=== PATIENT | male | born 1950 | race Caucasian/White ===

== ENCOUNTER 2022-09-06 10:50 | Emergency (ER) | payer OTHER ==
[~2022-09-06] VITALS: Ht 167.6 cm; Wt 115.7 kg
[2022-09-06] MEDS ORDERED: Acetaminophen325 M1 PO (11:16)
[2022-09-06] MEDS ORDERED: ASPI81CH PO (11:17)
[2022-09-06] MEDS ORDERED: DIVA500EC PO (11:17)
[2022-09-06] MEDS ORDERED: FLUTICASONE-SA1 EAC1 INH (11:36)
[2022-09-06] MEDS ORDERED: GABA300 PO (13:03)
[2022-09-06] MEDS ORDERED: HALO2 PO (13:04)
[2022-09-06] MEDS ORDERED: EUTHYROX125 MCG PO (13:04)
[2022-09-06] MEDS ORDERED: MELO7.5 PO (13:04)
[2022-09-06] MEDS ORDERED: OXYB5 PO (13:05)
[2022-09-06] MEDS ORDERED: Norco 5-325 Ta1 EACH PO (17:21)
== END 2022-09-06 17:39 | disposition home or self-care (01) ==
LOC: ER 10:50
DX: T84.028A Dislocation of other internal joint prosthesis, initial encounter (principal); X58.XXXA Exposure to other specified factors, initial encounter; Z88.8 Allergy status to other drugs, medicaments and biological substances; Z79.82 Long term (current) use of aspirin; Z79.890 Hormone replacement therapy; Z79.899 Other long term (current) drug therapy; Z96.611 Presence of right artificial shoulder joint
CPT/HCPCS: 73030; A9270; J2704; J7030

== ENCOUNTER 2023-08-30 20:01 | Inpatient (IN) | payer OTHER ==
[~2023-08-30] VITALS: Ht 177.8 cm; Wt 108.9 kg
[~2023-08-30 20:01] MED LIST: ACET500 PO; ASPI81CH PO; DIVA500ER PO; FLUTICASONE-SA1 EAC1 INH; GABA300 PO; HALOPERIDOL2 MG/1 ML PO; LEVSOD25 PO; MOBIC15 MG PO; Norco 5-325 Ta1 EACH PO; OXYB5 PO
[2023-08-30] MEDS ORDERED: CALCIUM CARBON650 MG PO (20:16)
[2023-08-30 20:28] LABS: Base Excess Venous 2.7 mmol/L; Bicarbonate Venous 26.8 mmol/L (24.0-30.0); PCO2 Venous 37.1 mmHg (38-42); pH Blood Venous 7.46 (7.34-7.37)
[2023-08-30 20:36] LABS: BASOPHILS PERCENT AUTO 1 % (0-2); EOSINOPHILS ABSOLUTE AUTO 0.06 K/mm3 (0.00-0.68); EOSINOPHILS PERCENT AUTO 0 % (0-6); Hematocrit 39.8 % (37.0-53.0); Hemoglobin 13.1 g/dL (13.5-17.5); IMMATURE GRAN ABSOLUTE AUTO 0.08 K/mm3 (0.00-0.10); IMMATURE GRAN PERCENT AUTO 1 % (0-1); LYMPHOCYTES ABSOLUTE AUTO 1.99 K/mm3 (0.84-5.20); LYMPHOCYTES PERCENT AUTO 13 % (21-46); MONOCYTES PERCENT AUTO 14 % (4-13); Mean Corpuscular HGB Conc 32.9 g/dL (31.5-36.5); Mean Corpuscular Volume 88 fL (80-100); NEUTROPHILS ABSOLUTE AUTO 11.08 K/mm3 (1.96-9.15); NEUTROPHILS PERCENT AUTO 72 % (41-73); RDW Coefficient Variation 15.6 % (11.7-14.2); Red Blood Cell Count 4.52 M/mm3 (4.30-5.90); White Blood Cell Count 15.51 K/mm3 (4.00-11.30)
[2023-08-30 20:38] LABS: Mean Platelet Volume 10.3 fL (9.1-12.4); Platelet Count 139 K/mm3 (150-400)
[2023-08-30 20:48] LABS: Albumin, Blood 3.1 g/dL (3.4-5.0); Albumin/Globulin Ratio 0.8 (0.8-1.8); Bilirubin, Total 0.6 mg/dL (0.1-1.0); Bun/Creatinine Ratio 20.6 (12.0-20.0); Calcium, Blood 8.8 mg/dL (8.5-10.1); Creatinine, Blood 1.02 mg/dL (0.60-1.20); Potassium, Blood 3.9 mmol/L (3.5-5.5); Total Protein, Blood 7.1 g/dL (6.4-8.2)
[2023-08-31 00:36] VITALS: BP 147/84
[2023-08-31] MEDS ORDERED: ALUM-MAG HYDROX30 M1 PO (03:28)
[2023-08-31] MEDS ORDERED: GUAIFENESIN-DM 15 M2 PO (03:30)
[2023-08-31] MEDS ORDERED: DIVA500ER PO (03:31)
[2023-08-31] MEDS ORDERED: DOCU100 PO (03:32)
[2023-08-31] MEDS ORDERED: LIDO700A20 TOP (03:35)
[2023-08-31] MEDS ORDERED: LOPE2C PO (03:36)
[2023-08-31] MEDS ORDERED: NAPPHEOPSO BOTHEYES (03:37)
[2023-08-31] MEDS ORDERED: DIAPER RASH113 G1 TOP (03:40)
[2023-08-31] MEDS ORDERED: SENN187 PO (03:41)
[2023-08-31] MEDS ORDERED: Vitamin D1000 UNI1 PO (03:42)
[2023-08-31 04:34] VITALS: BP 144/97
[2023-08-31 06:08] LABS: Albumin, Blood 2.9 g/dL (3.4-5.0); Albumin/Globulin Ratio 0.7 (0.8-1.8); Bilirubin, Total 0.7 mg/dL (0.1-1.0); Bun/Creatinine Ratio 26.5 (12.0-20.0); Calcium, Blood 8.1 mg/dL (8.5-10.1); Creatinine, Blood 0.91 mg/dL (0.60-1.20); Globulin, Blood 4.1 g/dL (2.2-4.0); Magnesium, Blood 1.8 mg/dL (1.6-2.4); Potassium, Blood 4.6 mmol/L (3.5-5.5); Thyroid Stimulating Hormone 6.95 uIU/mL (0.360-4.800)
[2023-08-31 06:14] LABS: BASOPHILS ABSOLUTE AUTO 0.06 K/mm3 (0.00-0.23); BASOPHILS PERCENT AUTO 0 % (0-2); EOSINOPHILS ABSOLUTE AUTO 0.15 K/mm3 (0.00-0.68); EOSINOPHILS PERCENT AUTO 1 % (0-6); Hematocrit 37.3 % (37.0-53.0); Hemoglobin 12.3 g/dL (13.5-17.5); IMMATURE GRAN ABSOLUTE AUTO 0.05 K/mm3 (0.00-0.10); IMMATURE GRAN PERCENT AUTO 0 % (0-1); LYMPHOCYTES ABSOLUTE AUTO 2.08 K/mm3 (0.84-5.20); LYMPHOCYTES PERCENT AUTO 15 % (21-46); MONOCYTES ABSOLUTE AUTO 2.07 K/mm3 (0.16-1.47); MONOCYTES PERCENT AUTO 15 % (4-13); Mean Corpuscular HGB 28.9 pg (26.0-34.0); Mean Corpuscular Volume 88 fL (80-100); Mean Platelet Volume 10.1 fL (9.1-12.4); NEUTROPHILS ABSOLUTE AUTO 9.52 K/mm3 (1.96-9.15); NEUTROPHILS PERCENT AUTO 68 % (41-73); Platelet Count 136 K/mm3 (150-400); RDW Coefficient Variation 15.5 % (11.7-14.2); RDW Standard Deviation 49.6 fL (35.1-46.3); Red Blood Cell Count 4.25 M/mm3 (4.30-5.90); White Blood Cell Count 13.93 K/mm3 (4.00-11.30)
[2023-08-31 07:25] VITALS: BP 145/80
[2023-08-31 10:04] LABS: Adenovirus Not Detected (NOT DETECT); Coronavirus 229E Not Detected (NOT DETECT); Coronavirus HKU1 Not Detected (NOT DETECT); Coronavirus NL63 Not Detected (NOT DETECT); Coronavirus OC43 Not Detected (NOT DETECT); Human Metapneumovirus Not Detected (NOT DETECT); Human Rhinovirus/Enterovirus Not Detected (NOT DETECT); Influenza A/2009-H1 Not Detected (NOT DETECT); Influenza A/H1 Not Detected (NOT DETECT); Influenza A/H3 Not Detected (NOT DETECT); Influenza B Not Detected (NOT DETECT); Parainfluenza Virus 1 Not Detected (NOT DETECT); Parainfluenza Virus 2 Not Detected (NOT DETECT); Parainfluenza Virus 3 Not Detected (NOT DETECT); Parainfluenza Virus 4 Not Detected (NOT DETECT); Respiratory Syncytial Virus Not Detected (NOT DETECT); SARS-Cov-2 (COVID-19), BioFire Not Detected (NOT DETECT)
[2023-08-31 10:05] LABS: Bordetella pertussis Not Detected (NOT DETECT); Chlamydophila pneumoniae Not Detected (NOT DETECT); Mycoplasma pneumoniae Not Detected (NOT DETECT)
[2023-08-31 16:24] VITALS: BP 122/88
--- NOTE | 2023-08-31 17:18 | NUR ---
SUMMARY- NO ACUTE EVENTS THIS SHIFT. PT AAOX1-[address] X2 ASSIST TO THE BSC. NO COMPLAINTS OF PAIN. PT CALM AND COOPERATIVE THIS SHIFT.
[2023-08-31 20:15] VITALS: BP 145/83
[2023-09-01 02:32] VITALS: BP 142/95
--- NOTE | 2023-09-01 04:40 | NUR ---
SHIFT SUMMERY, PT RESTED IN BED MOST OF THE NIGHT. PT GIVEN PINMED AT HS AND THEN REQUESTED ONE THIS AM. PT ALERT AND ORIENTED FROM 2-3. PT SOMETIMES FORGETTING THINGS. AT TIMES HAVING SOME DIFFICULTY WITH WORD FINDING. PT IS VERY APPRICIATIVE OF ANYTHING DONE FOR HIM. PT STANDING UP AT BEDSIDE TO VOID. CALL LIGHT IN REACH BED ALARM ON.
[2023-09-01 07:12] LABS: Hematocrit 35.8 % (37.0-53.0); Mean Corpuscular HGB 29.2 pg (26.0-34.0); Mean Corpuscular HGB Conc 33.5 g/dL (31.5-36.5); Mean Corpuscular Volume 87 fL (80-100); Mean Platelet Volume 10.4 fL (9.1-12.4); Platelet Count 121 K/mm3 (150-400); RDW Coefficient Variation 14.8 % (11.7-14.2); RDW Standard Deviation 47.4 fL (35.1-46.3); Red Blood Cell Count 4.11 M/mm3 (4.30-5.90); White Blood Cell Count 9.65 K/mm3 (4.00-11.30)
[2023-09-01 07:40] LABS: Albumin, Blood 2.7 g/dL (3.4-5.0); Albumin/Globulin Ratio 0.7 (0.8-1.8); Bilirubin, Total 0.5 mg/dL (0.1-1.0); Bun/Creatinine Ratio 24.5 (12.0-20.0); Calcium, Blood 8.7 mg/dL (8.5-10.1); Creatinine, Blood 0.73 mg/dL (0.60-1.20); Free Thyroxine 1.5 ng/dL (0.70-1.60); Potassium, Blood 3.8 mmol/L (3.5-5.5); Thyroid Stimulating Hormone 9.31 uIU/mL (0.360-4.800); Total Protein, Blood 6.7 g/dL (6.4-8.2)
[2023-09-01 07:49] VITALS: BP 141/87
[2023-09-01 16:19] VITALS: BP 149/84
--- NOTE | 2023-09-01 16:54 | NUR ---
BRITNI Young/OX2-3 THIS SHIFT. AMBULATING IN ROOM AND HALLS ITH FWW, GB AND SBA. VSS, WEANED TO RA. CONTINENT OF BOWEL AND BLADDER. SKIN INTACT. FALL PRECAUTIONS IN PLACE. PATIENT DOES FORGET TO CALL AT TIMES. RECEVING IV ABX. LIDOCAINE PATCH TO MID BACK AND NORCO USED TO TREAT PAIN. PATIENT HAD 1 EPISODE OF EMESIS THIS AM, BUT NO OTHER PROBLEMS THROUGHTOUT THE SHIFT. MAGGY OCHOA VISITED THIS EVENING AND WAS CURIOUS ABOUT EQUIPMENT THAT PATIENT MAY NEED AT HOME. PATIENT HAS BEEN USING A FWW HERE AND DOES NOT HAVE ONE AT HOME. NO NEW CONCERNS THIS SHIFT.
[2023-09-01 19:25] VITALS: BP 167/103
[2023-09-02 02:27] VITALS: BP 117/81
--- NOTE | 2023-09-02 03:23 | NUR ---
SHIFT SUMMERY, PT RESTING IN BED. PT UP SEVERAL TIMES TO VOID. PT HAS A BM DID NOT SEE BEFORE PT FLUSHED. PT ON RA DOING WELL. SLEEPING BETWEEN VOIDS. CALL LIGHT IN REACH BED ALARM ON. PT OFFTEN USES CALL LIGHT BUT AT TIMES FORGETS AND TRIESS TO GET OUT OF THE BED. BY HIMSELF.
[2023-09-02 07:31] VITALS: BP 120/87
[2023-09-02 15:33] VITALS: BP 114/76
--- NOTE | 2023-09-02 16:13 | NUR ---
PATIENT A/O X3 CALM AND COOPERATIVE WITH CARE. VSS, MAINTAINING SATS ON RA. UP WITH FWW, GB AND 1 ASSIST. CONTINENT OF BOWEL AND BLADDER. WORKING WITH PT/OT AND AMBULATING IN HALLS. PATIENT IS IMPULSIVE AND FALL PRECAUTIONS IN PLACE FOR SAFETY. LIDOCAINE PATCH AND NORCO USED TO TREAT R SHOULDER AND CHRONIC BACK PAIN. NO NEW CONCERNS THIS SHIFT. ABLE TO MAKE NEEDS KNOWN.
[2023-09-02 20:33] VITALS: BP 144/99
--- NOTE | 2023-09-03 04:37 | NUR ---
STOCK BUYER SUMMARY BP ELEVATED, OTHERWISE VSS. ANTIBIOICS AND MEDS ADMIN ORDERED - SEE MA FOR DETAILS. AWAKE AT INTERVALS THROUGHOUT SHIFT WITH REQUESTS FOR ASSISTANCE FOR THE URINAL, TO "PEE". SOME DIFFICULTIES WIT VERBALIZAION OF REQUESTS. DENIED PAIN WHEN ASKED. INCONT A FEW TIMES. COOPERATIVE WITH CARE. CALL LIGHT IN REACH. LUNG SOUNDS DIMINISHED OF RIGHT SIDE. RAILS UP X 2 FOR SAFETY. WILL CONTINUE TO MONITOR
[2023-09-03 04:43] VITALS: BP 154/86
[2023-09-03 07:33] VITALS: BP 144/97
[2023-09-03 14:23] LABS: SARS-Cov-2 (COVID-19) PCR, MMC NEGATIVE (NEGATIVE)
[2023-09-03 17:57] VITALS: BP 139/91
--- NOTE | 2023-09-03 18:53 | NUR ---
SHIFT SUMMARY: PACO IS A&OX2-3. VSS, NO ACUTE EVENTS THIS SHIFT. ATTENDS IN PLACE, PT HAS BEEN USING THE URINAL AT TIMES WITH ASSISTANCE. HE IS A ONE PERSON ASSIST TO THE BEDSIDE CHAIR/COMMODE. HE IS ABLE TO MAKE HIS NEEDS KNOWN, BUT DOES FORGET TO USE THE CALL LIGHT OR ALERT STAFF PRIOR TO STANDING AT TIMES. HE IS EASILY REDIRECTABLE. HE HAS BEEN TOLERATING PO INTAKE WELL, UP TO THE CHAIR FOR MEALS, EDUCATED ON ASPIRATION PRECAUTIONS. HE IS LYING IN BED WITH THE CALL LIGHT IN REACH, BED ALARM ON. WCTM UNTIL REPORT IS GIVEN TO MENTAL HEALTH ASSOCIATE RN.
[2023-09-03 20:29] VITALS: BP 134/84
[2023-09-04 03:59] VITALS: BP 151/85
--- NOTE | 2023-09-04 07:26 | NUR ---
SHIFT SUMMARY PT LAYING IN BED DURING BEDSIDE REPORT, PT REQUESTED TO GET UP DURING REPORT TO URINATE, PT UNABLE TO URINATE- RETURNED PT TO BED- PT REQUESTED TO GET UP WITHIN 10 MINUTES, PLACED CONDOM CATH - PT ABLE TO URINATE WITHOUT PROBLEMS, PT TOOK SCHEDULED HS MEDS- PT REPOSITIONED T/O NIGHT- BED LOW POSITION, CALL LIGHT WITHIN REACH, BED ALARM IN PLACE
[2023-09-04 07:47] VITALS: BP 122/99
--- NOTE | 2023-09-04 13:15 | NUR ---
REPORT GIVEN TO RN AT [facility]. DISCHARGE SUMMARY WILL BE SENT WITH TRANSPORT. PT IS ALERT AND ORIENTED X2-3. CALM AND COOPERATIVE. ABLE TO MAKE NEEDS KNOWN. R/A.
[2023-09-04] MEDS ORDERED: VISBIOME 112.51 EACH PO (14:26)
[2023-09-04] MEDS ORDERED: LEVO750 PO (14:26)
== END 2023-09-04 14:13 | DRG 871 ==
LOC: ER 20:01 → MEDS 08-31 → ENPENDDIS 09-04 10:39 → MEDS 09-04 14:13
PROVIDERS: Emergency Medicine; Internal Medicine; Student in an Organized Health Care Education/Training Program; ADMIT Student in an Organized Health Care Education/Training Program
DX: A41.9 Sepsis, unspecified organism (principal); G92.8 Other toxic encephalopathy; J18.9 Pneumonia, unspecified organism; J96.01 Acute respiratory failure with hypoxia; J98.11 Atelectasis; F03.90 Unspecified dementia, unspecified severity, without behavioral disturbance, psychotic disturbance, mood disturbance, and anxiety; E03.9 Hypothyroidism, unspecified; Z66 Do not resuscitate; J98.6 Disorders of diaphragm; M19.012 Primary osteoarthritis, left shoulder; M19.011 Primary osteoarthritis, right shoulder; F20.9 Schizophrenia, unspecified; Z11.52 Encounter for screening for COVID-19; Z88.8 Allergy status to other drugs, medicaments and biological substances; Z79.82 Long term (current) use of aspirin; Z79.1 Long term (current) use of non-steroidal anti-inflammatories (NSAID); Z79.890 Hormone replacement therapy; Z79.51 Long term (current) use of inhaled steroids; Z96.611 Presence of right artificial shoulder joint
CPT/HCPCS: 0202U; 36415; 71046; 80053; 82803; 82947; 83605; 83735; 84145; 84439; 84443; 85025; 85027; 92526; 92610; 93005; 93010; 94640; 94664; 94760; 96365; 96367; 97110; 97116; 97162; 97165; 97530; 97535; 99285-25; A9270; J0456; J0696; J1650; J7050; U0002

== ENCOUNTER 2024-01-12 09:07 | Emergency (ER) | payer OTHER ==
[~2024-01-12] VITALS: Ht 167.6 cm; Wt 102.1 kg
[~2024-01-12 09:07] MED LIST changes: +ALUM-MAG HYDROX30 M1 PO; +CALCIUM CARBON650 MG PO; +DIAPER RASH113 G1 TOP; +DOCU100 PO; +GUAIFENESIN-DM 15 M2 PO; +LEVO750 PO; +LIDO700A20 TOP; +LOPE2C PO; +NAPPHEOPSO BOTHEYES; +SENN187 PO; +VISBIOME 112.51 EACH PO; +Vitamin D1000 UNI1 PO
[2024-01-12 09:25] LABS: BASOPHILS ABSOLUTE AUTO 0.05 K/mm3 (0.00-0.23); BASOPHILS PERCENT AUTO 0 % (0-2); EOSINOPHILS ABSOLUTE AUTO 0.04 K/mm3 (0.00-0.68); EOSINOPHILS PERCENT AUTO 0 % (0-6); Hematocrit 41.9 % (37.0-53.0); IMMATURE GRAN ABSOLUTE AUTO 0.05 K/mm3 (0.00-0.10); IMMATURE GRAN PERCENT AUTO 0 % (0-1); LYMPHOCYTES PERCENT AUTO 9 % (21-46); MONOCYTES ABSOLUTE AUTO 1.77 K/mm3 (0.16-1.47); MONOCYTES PERCENT AUTO 13 % (4-13); Mean Corpuscular HGB 29.3 pg (26.0-34.0); Mean Corpuscular HGB Conc 33.4 g/dL (31.5-36.5); Mean Corpuscular Volume 88 fL (80-100); Mean Platelet Volume 10.5 fL (9.1-12.4); NEUTROPHILS ABSOLUTE AUTO 10.49 K/mm3 (1.96-9.15); NEUTROPHILS PERCENT AUTO 77 % (41-73); Platelet Count 168 K/mm3 (150-400); RDW Coefficient Variation 15.1 % (11.7-14.2); RDW Standard Deviation 48.7 fL (35.1-46.3); Red Blood Cell Count 4.78 M/mm3 (4.30-5.90)
[2024-01-12 09:55] LABS: Albumin, Blood 3.4 g/dL (3.4-5.0); Albumin/Globulin Ratio 0.8 (0.8-1.8); Bilirubin, Total 0.7 mg/dL (0.1-1.0); Bun/Creatinine Ratio 21.4 (12.0-20.0); Calcium, Blood 9.2 mg/dL (8.5-10.1); Creatinine, Blood 0.93 mg/dL (0.60-1.20); Globulin, Blood 4.1 g/dL (2.2-4.0); Potassium, Blood 4.1 mmol/L (3.5-5.5); Thyroid Stimulating Hormone 6.07 uIU/mL (0.360-4.800); Total Protein, Blood 7.5 g/dL (6.4-8.2)
[2024-01-12] MEDS ORDERED: CefTRIAXone Sodium 1,000 MG in NS 50 ML IV ONE (10:10)
[2024-01-12 10:36] LABS: Influenza A, PCR NEGATIVE (NEGATIVE); Influenza B, PCR NEGATIVE (NEGATIVE); Resp Syncytial Virus, PCR NEGATIVE (NEGATIVE); SARS-Cov-2 (COVID-19) PCR, MMC NEGATIVE (NEGATIVE)
[2024-01-12 13:04] LABS: Source, Urine Voided
[2024-01-12 13:17] LABS: Appearance, Urine Clear (Clear); Bilirubin, Urine Neg (Neg); Blood, Urine Neg (Neg); Color, Urine Yellow (P-Yellow); Glucose Qualitative, Urine Neg (Neg); Ketones, Urine 3+ (Neg); Leukocyte Esterase, Urine Neg (Neg); Nitrite, Urine Neg (Neg); Protein, Urine Neg (Neg); Urobilinogen, Urine NORM (Normal)
[2024-01-12] MEDS ORDERED: DOXYCYCLINE HY100 M1 PO (13:41)
[2024-01-12] MEDS ORDERED: HYDROCODONE-AC1 EA10 PO (15:33)
[2024-01-12 16:00] VITALS: BP 125/90
== END 2024-01-12 16:18 | disposition home or self-care (01) ==
LOC: ER 09:07
PROVIDERS: Emergency Medicine
DX: J18.9 Pneumonia, unspecified organism (principal); E03.9 Hypothyroidism, unspecified; Z79.82 Long term (current) use of aspirin; Z79.1 Long term (current) use of non-steroidal anti-inflammatories (NSAID); Z79.899 Other long term (current) drug therapy; Z88.8 Allergy status to other drugs, medicaments and biological substances
CPT/HCPCS: 0241U; 71045; 80053; 81003; 84443; 85025; 96365; 99284-25; J0696

== ENCOUNTER → 2024-10-05 | Outpatient (CLI) | payer SELFPAY ==
[~2024-10-05] MED LIST changes: +DOXYCYCLINE HY100 M1 PO; +HYDROCODONE-AC1 EA10 PO
[2024-10-05 16:27] LABS: Source, Urine Voided
[2024-10-05 17:36] LABS: Bilirubin, Urine Neg (Neg); Blood, Urine 1+ (Neg); Color, Urine Amber (P-Yellow); Glucose Qualitative, Urine Neg (Neg); Ketones, Urine 3+ (Neg); Leukocyte Esterase, Urine 1+ (Neg); Nitrite, Urine Neg (Neg); Protein, Urine 2+ (Neg); Specific Gravity, Urine 1.025 (1.003-1.022); Urobilinogen, Urine NORM (Normal)
[2024-10-05 18:04] LABS: Appearance, Urine Hazy (Clear)
[2024-10-05 18:05] LABS: Red Blood Cells, Urine 0-2 /hpf (0-2); Squamous Epithelial Cells Rare /hpf (Few)
[2024-10-05 18:06] LABS: Amorphous Light (0-Heavy); Bacteria Many /hpf; Calcium Oxalate Crystals Few /hpf; Mucus Heavy (0-Heavy)
== END ==
LOC: LAB 16:25 → LAB SHORT 16:25
PROVIDERS: Nurse Practitioner Primary Care
DX: N39.0 Urinary tract infection, site not specified (principal)
CPT/HCPCS: 81001; 87086

== ENCOUNTER → 2025-05-04 | Outpatient (CLI) | payer OTHER ==
[2025-05-05 15:09] LABS: Bilirubin, Urine Neg (Neg); Color, Urine Yellow (P-Yellow); Glucose Qualitative, Urine Neg (Neg); Ketones, Urine 1+ (Neg); Leukocyte Esterase, Urine Neg (Neg); Protein, Urine 1+ (Neg); Specific Gravity, Urine 1.020 (1.003-1.022); Urobilinogen, Urine NORM (Normal)
[2025-05-05 15:21] LABS: White Blood Cells, Urine 0-2 /hpf (0-5)
== END ==
LOC: LAB SHORT 17:40 → LAB 17:40
PROVIDERS: Nurse Practitioner Primary Care
DX: N39.0 Urinary tract infection, site not specified (principal)
CPT/HCPCS: 81001